=== PATIENT | male | born 1985 | race Caucasian/White ===

== ENCOUNTER 2023-10-05 10:46 | Emergency (ER) | payer BC ==
[~2023-10-05] VITALS: Ht 177.8 cm; Wt 70.4 kg
[2023-10-05 12:20] VITALS: O2SAT 100
[2023-10-05] MEDS ORDERED: OMEPRAZOLE40 MG PO (18:43)
[2023-10-18] MEDS ORDERED: METHOCARBAMOL500 MG PO (14:20)
[2023-10-18] MEDS ORDERED: IBUPROFEN600 MG PO (14:20)
== END 2023-10-05 12:20 | disposition home or self-care (01) ==
LOC: FSED 10:54
DX: R05.9 Cough, unspecified (principal); J02.9 Acute pharyngitis, unspecified; Z11.52 Encounter for screening for COVID-19
CPT/HCPCS: 0223U; 81003; 99283